=== PATIENT | female | born 1960 | race Caucasian/White ===

== ENCOUNTER 2018-05-04 13:45 | Outpatient (RCR) | payer MEDICARE, MEDICAID, SELFPAY ==
--- NOTE | 2018-04-11 12:00 | PT.OIE ---
Current Diagnoses Bilateral primary osteoarthritis of knee (04/11/18) Past Medical History (Last Updated 12/17/17 @ 20:05 by Dolly Lopez) Osteoarthritis of knees, bilateral (Chronic) Essential hypertension (Chronic 08/30/11) Depression (Chronic 08/30/11) Hyperlipidemia (Chronic 11/23/11) Hypertrophic obstructive cardiomyopathy (Chronic) Carpal tunnel syndrome of left wrist (Chronic 09/19/16) Depression (Chronic) Heart valve disease (Chronic) Hypertension (Chronic) Hypertrophic cardiomyopathy (Chronic ~2002) Obesity (Chronic) Past Surgical History (Last Updated 12/17/17 @ 20:05 by Dolly Lopez) History of aortic valve repair (Resolved ~2004) Status post hysterectomy (~2007) Provider Visit Care Team Role Provider Type Sakshi Hartman DO Attending Provider Physician Primary Care Provider Specialty: [facility] Address: [address] [place] [address], [facility] Email: [email or web address] Physical Therapy Initial Evaluation PT-OP-A Visit Information Start: 04/11/18 06:52 Freq: Status: Active Protocol: Document 04/11/18 08:15 AMB (Rec: 04/12/18 16:24 AMB [email or web address]) Out-Patient Physical Therapy Visit Information Visit Information Visit Type Initial Evaluation Visit Start Time 08:15 Visit Stop Time 09:00 Total Visit Minutes 45 Visit Number 1 Evaluation Information Evaluation Date 04/11/18 PT-OP-B Current Condition Start: 04/11/18 06:52 Freq: Status: Active Protocol: Document 04/11/18 08:15 AMB (Rec: 04/13/18 07:15 AMB [email or web address]) Current Condition History of Current Condition Onset Date chronic Current Complaints L>R knee pain History of Current Condition The patient states her knee pain has been limiting her for years but it has been worsening. BMI over 68. Lives in an apartment up stairs, and standing statically (like to cook) is very difficult. Does not remember a specific injury to her knees. Prior Functional Status Baseline Function- ADL's Independent Baseline Function- Mobility Modified Independent Current Functional Impairments (Reported) Functional Limitations- Mobility/Gait Step to gait pattern on stairs . Cannot walk down the stairs and hold her dog's leash, must use both railings. Personal Factors Other Personal Factors That May Effect Heart valve replacement Therapy/Recovery . Did cardiac rehab afterwards but knows that biking increased her knee pain at that time. Neck pain, L carpal tunnel syndrome, Allergic to adhesives and metal , hypertension, depression, shortness of breath, history of open hysterectomy. PT-OP-C Subjective Start: 04/11/18 06:52 Freq: Status: Active Protocol: Document 04/11/18 08:15 AMB (Rec: 04/13/18 07:15 AMB [email or web address]) Patient Questionnaires Lower Extremity Functional Scale LEFS Score 22 LEFS Impairment 60 to 79% Impaired (Score 17- 31) OP-PT Pain Assessment Pain Assessment Grid Paper Pain Assessment Grid Completed Yes Location Bilateral Knee Pain Location Details L>R Intensity 7 Scale Used Numeric (1 - 10) PT-OP-G Mobility & Gait Start: 04/11/18 06:52 Freq: Status: Active Protocol: Document 04/11/18 08:15 AMB (Rec: 04/13/18 08:44 AMB [email or web address]) OP Gait Assessment Comments Gait Comments Pt ambulates with bilateral hip external rotation and a WBOS. Lacks trunk rotation, increased lateral weightshift, pt becomes SOB easily. PT-OP-J Posture/Palpation/Skin Start: 04/11/18 06:52 Freq: Status: Active Protocol: Document 04/11/18 08:15 AMB (Rec: 04/13/18 08:44 AMB [email or web address]) Palpation Assessment Location One Palpation Location knees Palpation Details Pt with tenderness throughout her knees with light touch, difficult to palpate deeply PT-OP-K Range of Motion Start: 04/11/18 06:52 Freq: Status: Active Protocol: Document 04/11/18 08:15 AMB (Rec: 04/13/18 08:44 AMB [email or web address]) Knee Goniometric Range of Motion Knee Measured in Degrees Right Flexion Passive (degrees) 105 Extension Passive (degrees) 0 Left Flexion Passive (degrees) 108 Extension Active (degrees) 0 PT-OP-M Strength Start: 04/11/18 06:52 Freq: Status: Active Protocol: Document 04/11/18 08:15 AMB (Rec: 04/13/18 08:44 AMB [email or web address]) Hip Strength Hip Manual Muscle Testing Right Flexion (L2) 4 Good Extension (S1) 4- Good- Abduction 4- Good- Left Flexion (L2) 4 Good Extension (S1) 4- Good- Abduction 4- Good- Knee Strength Knee Manual Muscle Testing Right Flexion (S2) 4 Good Extension (L3) 4 Good Left Flexion (S2) 4 Good Extension (L3) 4 Good Ankle/Foot Strength Ankle and Foot Manual Muscle Testing Right Dorsiflexion (L4) 4+ Good+ Plantarflexion (S1) 4 Good Left Dorsiflexion (L4) 4+ Good+ Plantarflexion (S1) 4 Good PT-OP-R Modalities Start: 04/13/18 08:31 Freq: Status: Active Protocol: Document 04/11/18 08:15 AMB (Rec: 04/13/18 08:44 AMB [email or web address]) Electric Stimulation Electric Stimulation Pre-Modulated Body Location bilateral knees Duration (Minutes) 10 PT-OP-T Assessment and Plan Start: 04/11/18 06:52 Freq: Status: Active Protocol: Document 04/11/18 08:15 AMB (Rec: 04/13/18 07:28 AMB [email or web address]) Physical Therapy Assessment Rehab Potential Rehabilitation Potential Good Evaluation Complexity Number of Personal Factors/Comorbidities 3 or More Number of Body Systems Impaired 4 or More Clinical Presentation at Evaluation Evolving Impairments Impairments Balance Functional Activities Functional Mobility Gait Pain ROM Strength Goals Three Impairment Gait Short Term Goal (STG) The patient will ascend and descend 1 flight of stairs with 1 railing with 4/10 knee pain or less. STG Duration 4 weeks Snf Goal (LTG) The patient will begin a walking program for exercise, increasing her walking to 20 minutes per day. LTG Duration 8 weeks Two Impairment Range of motion Short Term Goal (STG) The patient will improve her knee flexion to 110 degrees of passive range of motion bilaterally. STG Duration 4 weeks One Impairment Strength Short Term Goal (STG) The patient will be independent with a LE and core strengthening HEP. STG Duration 4 weeks Snf Goal (LTG) The patient will show improved LE strength so that she can perform a partial squat with good body mechanics and with 4 /10 knee pain or less. LTG Duration 8 weeks Assessment Summary Assessment The patient attends physical therapy with worsening L>R knee pain. Standing and walking are both limited by her knee pain. Her weight makes weightbearing activities difficult, but she finds biking painful and has a difficult time tolerating the chlorine in a swimming pool. She will benefit from physical therapy to improve her ROM, strength, gait mechanics, and decrease her pain, although her medical comorbidities may make progress slow. Physical Therapy Plan Frequency and Duration Frequency of Treatment 2x/Week Duration of Treatment 8 weeks Plan of Care Start Date 04/11/18 Plan of Care End Date 06/06/17 Therapeutic Interventions Therapeutic Interventions Balance Training Gait Training Home Exercise Program Manual Therapy Neuromuscular Re-education Self-Care/Home Management Therapeutic Activities Therapeutic Exercises Modalities Cold Pack/Ice Massage Electric Stimulation Hot Packs Ultrasound Next Visit Focus/Plan Next Note Type Treatment Note Next Visit Plan Progress knee/hip/core stabilization within patient tolerance which is low.
--- NOTE | 2018-04-13 08:46 | PT.OPPOC ---
Current Diagnoses Bilateral primary osteoarthritis of knee (04/11/18) Provider Visit Care Team Role Provider Type Sakshi Hartman DO Attending Provider Physician Primary Care Provider Specialty: [facility] Address: [address] [place] [address], [id number] Email: [email or web address] Plan Of Care PT-OP-T Assessment and Plan Start: 04/11/18 06:52 Freq: Status: Active Protocol: Document 04/11/18 08:15 AMB (Rec: 04/13/18 07:28 AMB [email or web address]) Physical Therapy Assessment Rehab Potential Rehabilitation Potential Good Evaluation Complexity Number of Personal Factors/Comorbidities 3 or More Number of Body Systems Impaired 4 or More Clinical Presentation at Evaluation Evolving Impairments Impairments Balance Functional Activities Functional Mobility Gait Pain ROM Strength Goals Three Impairment Gait Short Term Goal (STG) The patient will ascend and descend 1 flight of stairs with 1 railing with 4/10 knee pain or less. STG Duration 4 weeks Passenger Barge Master Goal (LTG) The patient will begin a walking program for exercise, increasing her walking to 20 minutes per day. LTG Duration 8 weeks Two Impairment Range of motion Short Term Goal (STG) The patient will improve her knee flexion to 110 degrees of passive range of motion bilaterally. STG Duration 4 weeks One Impairment Strength Short Term Goal (STG) The patient will be independent with a LE and core strengthening HEP. STG Duration 4 weeks Longterm Goal (LTG) The patient will show improved LE strength so that she can perform a partial squat with good body mechanics and with 4 /10 knee pain or less. LTG Duration 8 weeks Assessment Summary Assessment The patient attends physical therapy with worsening L>R knee pain. Standing and walking are both limited by her knee pain. Her weight makes weightbearing activities difficult, but she finds biking painful and has a difficult time tolerating the chlorine in a swimming pool. She will benefit from physical therapy to improve her ROM, strength, gait mechanics, and decrease her pain, although her medical comorbidities may make progress slow. Physical Therapy Plan Frequency and Duration Frequency of Treatment 2x/Week Duration of Treatment 8 weeks Plan of Care Start Date 04/11/18 Plan of Care End Date 06/06/17 Therapeutic Interventions Therapeutic Interventions Balance Training Gait Training Home Exercise Program Manual Therapy Neuromuscular Re-education Self-Care/Home Management Therapeutic Activities Therapeutic Exercises Modalities Cold Pack/Ice Massage Electric Stimulation Hot Packs Ultrasound Next Visit Focus/Plan Next Note Type Treatment Note Next Visit Plan Progress knee/hip/core stabilization within patient tolerance which is low. Plan of Care Dates Plan of Care Start Date 04/11/18 Plan of Care End Date 06/06/17 Please Sign and Return: I have reviewed this Plan of Care and certify that the skilled therapy services above are required to meet the patient?s needs. Physician Signature Date Printed Name and Credentials Clinical Instructor Signature Printed Name and Credentials
--- NOTE | 2018-04-26 11:03 | PT.OTN ---
Current Diagnoses Bilateral primary osteoarthritis of knee (04/26/18) Physical Therapy Treatment Note PT-OP-A Visit Information Start: 04/11/18 06:52 Freq: Status: Active Protocol: Document 04/26/18 08:15 AMB (Rec: 04/26/18 08:23 AMB [id number]) Out-Patient Physical Therapy Visit Information Visit Information Visit Type Treatment Note Visit Start Time 08:15 Visit Stop Time 09:00 Total Visit Minutes 45 Visit Number 2 Evaluation Information Evaluation Date 04/11/18 PT-OP-B Current Condition Start: 04/11/18 06:52 Freq: Status: Active Protocol: Document 04/11/18 08:15 AMB (Rec: 04/13/18 07:15 AMB [email or web address]) Current Condition History of Current Condition Onset Date chronic Current Complaints L>R knee pain History of Current Condition The patient states her knee pain has been limiting her for years but it has been worsening. BMI over 68. Lives in an apartment up stairs, and standing statically (like to cook) is very difficult. Does not remember a specific injury to her knees. Prior Functional Status Baseline Function- ADL's Independent Baseline Function- Mobility Modified Independent Current Functional Impairments (Reported) Functional Limitations- Mobility/Gait Step to gait pattern on stairs . Cannot walk down the stairs and hold her dog's leash, must use both railings. Personal Factors Other Personal Factors That May Effect Heart valve replacement 3 Therapy/Recovery years ago. Did cardiac rehab afterwards but knows that biking increased her knee pain at that time. Neck pain, L carpal tunnel syndrome, Alergic to adhesives and metal , hypertension, depression, shortness of breath, history of open hysterectomy. PT-OP-C Subjective Start: 04/11/18 06:52 Freq: Status: Active Protocol: Document 04/26/18 08:15 AMB (Rec: 04/26/18 08:23 AMB [id number]) OP-PT Subjective Patient Comments Patient Comments Pt reports she had pneumonia and took some antibiotics, she still has a productive cough but no more fever. PT-OP-G Mobility & Gait Start: 04/11/18 06:52 Freq: Status: Active Protocol: Document 04/11/18 08:15 AMB (Rec: 04/13/18 08:44 AMB [email or web address]) OP Gait Assessment Comments Gait Comments Pt ambulates with bilateral hip external rotation and a WBOS. Lacks trunk rotation, increased lateral weightshift, pt becomes SOB easily. PT-OP-J Posture/Palpation/Skin Start: 04/11/18 06:52 Freq: Status: Active Protocol: Document 04/11/18 08:15 AMB (Rec: 04/13/18 08:44 AMB [email or web address]) Palpation Assessment Location One Palpation Location knees Palpation Details Pt with tenderness throughout her knees with light touch, difficult to palpate deeply PT-OP-K Range of Motion Start: 04/11/18 06:52 Freq: Status: Active Protocol: Document 04/11/18 08:15 AMB (Rec: 04/13/18 08:44 AMB [email or web address]) Knee Goniometric Range of Motion Knee Measured in Degrees Right Flexion Passive (degrees) 105 Extension Passive (degrees) 0 Left Flexion Passive (degrees) 108 Extension Active (degrees) 0 PT-OP-M Strength Start: 04/11/18 06:52 Freq: Status: Active Protocol: Document 04/11/18 08:15 AMB (Rec: 04/13/18 08:44 AMB [email or web address]) Hip Strength Hip Manual Muscle Testing Right Flexion (L2) 4 Good Extension (S1) 4- Good- Abduction 4- Good- Left Flexion (L2) 4 Good Extension (S1) 4- Good- Abduction 4- Good- Knee Strength Knee Manual Muscle Testing Right Flexion (S2) 4 Good Extension (L3) 4 Good Left Flexion (S2) 4 Good Extension (L3) 4 Good Ankle/Foot Strength Ankle and Foot Manual Muscle Testing Right Dorsiflexion (L4) 4+ Good+ Plantarflexion (S1) 4 Good Left Dorsiflexion (L4) 4+ Good+ Plantarflexion (S1) 4 Good PT-OP-Q Treatments Start: 04/11/18 06:52 Freq: Status: Active Protocol: Document 04/26/18 08:15 AMB (Rec: 04/26/18 11:03 AMB [email or web address]) Cardio Equipment Recumbent Stepper (Sci-Fit) Duration (Minutes) 5 Resistance 1 Therapeutic Exercises Sitting Exercises 3 Sitting Exercise Name hip add isometric Reps/Minutes 2x10 2 Sitting Exercise Name hip ER Side bilateral Resistance #3 band Reps/Minutes 2x10 1 Sitting Exercise Name LAQ Side bilateral Resistance 4# Reps/Minutes 2x10 Standing Exercises 2 Standing Exercise Name sidestepping Resistance #3 band Reps/Minutes 2x10' 1 Standing Exercise Name mini squats Reps/Minutes 2x5 Comments vc for hips back posture PT-OP-R Modalities Start: 04/13/18 08:31 Freq: Status: Active Protocol: Document 04/26/18 08:15 AMB (Rec: 04/26/18 11:03 AMB [email or web address]) Electric Stimulation Electric Stimulation Pre-Modulated Body Location bilateral knees Duration (Minutes) 10 Comments seated PT-OP-T Assessment and Plan Start: 04/11/18 06:52 Freq: Status: Active Protocol: Document 04/26/18 08:15 AMB (Rec: 04/26/18 11:03 AMB [email or web address]) Physical Therapy Assessment Assessment Summary Assessment Pt with poor tolerance of even gentle exercises. Given HEP for hip strengthening (hip abd /add in seated) Physical Therapy Plan Next Visit Focus/Plan Next Note Type Treatment Note Next Visit Plan Progress knee/hip/core stabilization within patient tolerance which is low.
--- NOTE | 2018-05-04 14:37 | PT.OTN ---
Current Diagnoses Bilateral primary osteoarthritis of knee (05/04/18) Physical Therapy Treatment Note PT-OP-A Visit Information Start: 04/11/18 06:52 Freq: Status: Active Protocol: Document 05/04/18 13:45 AMB (Rec: 05/04/18 13:58 AMB [id number]) Out-Patient Physical Therapy Visit Information Visit Information Visit Type Treatment Note Visit Start Time 13:45 Visit Stop Time 14:30 Total Visit Minutes 45 Visit Number 3 Evaluation Information Evaluation Date 04/11/18 PT-OP-B Current Condition Start: 04/11/18 06:52 Freq: Status: Active Protocol: Document 04/11/18 08:15 AMB (Rec: 04/13/18 07:15 AMB [email or web address]) Current Condition History of Current Condition Onset Date chronic Current Complaints L>R knee pain History of Current Condition The patient states her knee pain has been limiting her for years but it has been worsening. BMI over 68. Lives in an apartment up stairs, and standing statically (like to cook) is very difficult. Does not remember a specific injury to her knees. Prior Functional Status Baseline Function- ADL's Independent Baseline Function- Mobility Modified Independent Current Functional Impairments (Reported) Functional Limitations- Mobility/Gait Step to gait pattern on stairs . Cannot walk down the stairs and hold her dog's leash, must use both railings. Personal Factors Other Personal Factors That May Effect Heart valve replacement 3 Therapy/Recovery years ago. Did cardiac rehab afterwards but knows that biking increased her knee pain at that time. Neck pain, L carpal tunnel syndrome, Alergic to adhesives and metal , hypertension, depression, shortness of breath, history of open hysterectomy. PT-OP-C Subjective Start: 04/11/18 06:52 Freq: Status: Active Protocol: Document 05/04/18 13:45 AMB (Rec: 05/04/18 13:58 AMB [id number]) OP-PT Subjective Patient Comments Patient Comments Pt with 8/10 knee pain today PT-OP-G Mobility & Gait Start: 04/11/18 06:52 Freq: Status: Active Protocol: Document 04/11/18 08:15 AMB (Rec: 04/13/18 08:44 AMB [email or web address]) OP Gait Assessment Comments Gait Comments Pt ambulates with bilateral hip external rotation and a WBOS. Lacks trunk rotation, increased lateral weightshift, pt becomes SOB easily. PT-OP-J Posture/Palpation/Skin Start: 04/11/18 06:52 Freq: Status: Active Protocol: Document 04/11/18 08:15 AMB (Rec: 04/13/18 08:44 AMB [email or web address]) Palpation Assessment Location One Palpation Location knees Palpation Details Pt with tenderness throughout her knees with light touch, difficult to palpate deeply PT-OP-K Range of Motion Start: 04/11/18 06:52 Freq: Status: Active Protocol: Document 04/11/18 08:15 AMB (Rec: 04/13/18 08:44 AMB [email or web address]) Knee Goniometric Range of Motion Knee Measured in Degrees Right Flexion Passive (degrees) 105 Extension Passive (degrees) 0 Left Flexion Passive (degrees) 108 Extension Active (degrees) 0 PT-OP-M Strength Start: 04/11/18 06:52 Freq: Status: Active Protocol: Document 04/11/18 08:15 AMB (Rec: 04/13/18 08:44 AMB [email or web address]) Hip Strength Hip Manual Muscle Testing Right Flexion (L2) 4 Good Extension (S1) 4- Good- Abduction 4- Good- Left Flexion (L2) 4 Good Extension (S1) 4- Good- Abduction 4- Good- Knee Strength Knee Manual Muscle Testing Right Flexion (S2) 4 Good Extension (L3) 4 Good Left Flexion (S2) 4 Good Extension (L3) 4 Good Ankle/Foot Strength Ankle and Foot Manual Muscle Testing Right Dorsiflexion (L4) 4+ Good+ Plantarflexion (S1) 4 Good Left Dorsiflexion (L4) 4+ Good+ Plantarflexion (S1) 4 Good PT-OP-Q Treatments Start: 04/11/18 06:52 Freq: Status: Active Protocol: Document 05/04/18 13:45 AMB (Rec: 05/05/18 14:36 AMB [email or web address]) Therapeutic Exercises Sitting Exercises 4 Sitting Exercise Name march Reps/Minutes 2x10 1 Sitting Exercise Name LAQ Side bilateral Resistance 4# Reps/Minutes 2x10 Standing Exercises 4 Standing Exercise Name standing calf stretch Reps/Minutes 30x2 Comments ARASELI 3 Standing Exercise Name standing hamstring stretch Reps/Minutes 30x2 Comments stair 1 Standing Exercise Name mini squats Reps/Minutes 2x8 Comments from liudmila blum Manual Therapy Treatment Manual Techniques 1 Type rolling pin self myofascial release Body Position Sitting PT-OP-R Modalities Start: 04/13/18 08:31 Freq: Status: Active Protocol: Document 05/04/18 13:45 AMB (Rec: 05/05/18 14:37 AMB [email or web address]) Electric Stimulation Electric Stimulation Pre-Modulated Body Location bilateral knees Duration (Minutes) 15 Comments seated PT-OP-T Assessment and Plan Start: 04/11/18 06:52 Freq: Status: Active Protocol: Document 05/04/18 13:45 AMB (Rec: 05/05/18 14:36 AMB [email or web address]) Physical Therapy Assessment Assessment Summary Assessment Pt with better tolerance of exercises today. Sitting and standing are the best positions, as lying down is difficult with breathing. Physical Therapy Plan Next Visit Focus/Plan Next Note Type Treatment Note Next Visit Plan Progress knee/hip/core stabilization within patient tolerance which is low.
--- NOTE | 2018-06-19 08:54 | PT.OPDS ---
Current Diagnoses Bilateral primary osteoarthritis of knee (05/04/18) Provider Visit Care Team Role Provider Type Sakshi Hartman DO Attending Provider Physician Primary Care Provider Specialty: [facility] Address: [address] [place] [address], [facility] Email: [email or web address] Visit Number Visit Number 3 Discharge Summary PT-OP-B Current Condition Start: 04/11/18 06:52 Freq: Status: Active Protocol: Document 04/11/18 08:15 AMB (Rec: 04/13/18 07:15 AMB [id number]) Current Condition History of Current Condition Onset Date chronic Current Complaints L>R knee pain History of Current Condition The patient states her knee pain has been limiting her for years but it has been worsening. BMI over 68. Lives in an apartment up stairs, and standing statically (like to cook) is very difficult. Does not remember a specific injury to her knees. Prior Functional Status Baseline Function- ADL's Independent Baseline Function- Mobility Modified Independent Current Functional Impairments (Reported) Functional Limitations- Mobility/Gait Step to gait pattern on stairs . Cannot walk down the stairs and hold her dog's leash, must use both railings. Personal Factors Other Personal Factors That May Effect Heart valve replacement 3 Therapy/Recovery years ago. Did cardiac rehab afterwards but knows that biking increased her knee pain at that time. Neck pain, L carpal tunnel syndrome, Alergic to adhesives and metal , hypertension, depression, shortness of breath, history of open hysterectomy. PT-OP-C Subjective Start: 04/11/18 06:52 Freq: Status: Active Protocol: Document 05/04/18 13:45 AMB (Rec: 05/04/18 13:58 AMB [id number]) OP-PT Subjective Patient Comments Patient Comments Pt with 8/10 knee pain today PT-OP-G Mobility & Gait Start: 04/11/18 06:52 Freq: Status: Active Protocol: Document 04/11/18 08:15 AMB (Rec: 04/13/18 08:44 AMB [email or web address]) OP Gait Assessment Comments Gait Comments Pt ambulates with bilateral hip external rotation and a WBOS. Lacks trunk rotation, increased lateral weightshift, pt becomes SOB easily. PT-OP-J Posture/Palpation/Skin Start: 04/11/18 06:52 Freq: Status: Active Protocol: Document 04/11/18 08:15 AMB (Rec: 04/13/18 08:44 AMB [email or web address]) Palpation Assessment Location One Palpation Location knees Palpation Details Pt with tenderness throughout her knees with light touch, difficult to palpate deeply PT-OP-K Range of Motion Start: 04/11/18 06:52 Freq: Status: Active Protocol: Document 04/11/18 08:15 AMB (Rec: 04/13/18 08:44 AMB [email or web address]) Knee Goniometric Range of Motion Knee Measured in Degrees Right Flexion Passive (degrees) 105 Extension Passive (degrees) 0 Left Flexion Passive (degrees) 108 Extension Active (degrees) 0 PT-OP-M Strength Start: 04/11/18 06:52 Freq: Status: Active Protocol: Document 04/11/18 08:15 AMB (Rec: 04/13/18 08:44 AMB [email or web address]) Hip Strength Hip Manual Muscle Testing Right Flexion (L2) 4 Good Extension (S1) 4- Good- Abduction 4- Good- Left Flexion (L2) 4 Good Extension (S1) 4- Good- Abduction 4- Good- Knee Strength Knee Manual Muscle Testing Right Flexion (S2) 4 Good Extension (L3) 4 Good Left Flexion (S2) 4 Good Extension (L3) 4 Good Ankle/Foot Strength Ankle and Foot Manual Muscle Testing Right Dorsiflexion (L4) 4+ Good+ Plantarflexion (S1) 4 Good Left Dorsiflexion (L4) 4+ Good+ Plantarflexion (S1) 4 Good PT-OP-T Assessment and Plan Start: 04/11/18 06:52 Freq: Status: Active Protocol: Document 06/19/18 08:51 AMB (Rec: 06/19/18 08:54 AMB [email or web address]) Physical Therapy Assessment Assessment Summary Assessment Cece was seen for 3 visits. In that time she did not significantly improve, but was instructed in a home exercise program that she can perform. She canceled and no showed her last few appointments over a month ago, so she is discharged at this time. Physical Therapy Plan Discharge Physical Therapy Discharge Reasons No Longer Attending PT
== END 2018-06-19 09:50 ==
LOC: PHYS 13:45
PROVIDERS: PCP Family Medicine; Visit Provider Family Medicine
DX: M17.0 Bilateral primary osteoarthritis of knee (principal)
CPT/HCPCS: 97014; 97110; 97140; 97162; G0283

== ENCOUNTER → 2018-10-11 10:46 | Outpatient (CLI) | payer MEDICARE, MEDICAID, SELFPAY ==
[2018-10-11 11:23] LABS: Hemoglobin A1C% w Est Avg Glu 5.9 % (4.0-6.0)
[2018-10-11 11:26] LABS: Alanine Aminotransferase 34 IU/L (9-52); Albumin 4.5 g/dL (3.5-5.0); Albumin Globulin Ratio 1.3 (1.0-2.8); Alkaline Phosphatase 92 U/L (38-126); Aspartate Aminotransferase 24 IU/L (14-36); BUN Creatinine Ratio 18.5 (6-22); Blood Urea Nitrogen 24 mg/dL (7-17); Calcium 9.9 mg/dL (8.4-10.2); Carbon Dioxide 27 mmol/L (22-32); Chloride 104 mmol/L (98-107); Cholesterol 161 mg/dL (140-199); Estimated Glomerular Filt Rate 42.1 mL/min (>60); Globulin 3.5 g/dL (1.7-4.1); Glucose 111 mg/dL (70-100); HDL Cholesterol 28 mg/dL (40-60); HEMOLYSIS < 15 (0-50); LDL Cholesterol Calculated 103 mg/dL (<100); Sodium 142 mmol/L (137-145); Triglycerides 151 mg/dL (35-150)
[2018-10-11 12:55] LABS: TSH w/ Reflex to FT4 2.84 uIU/mL (0.47-4.68)
== END ==
PROVIDERS: PCP Family Medicine; Visit Provider Family Medicine
DX: I10 Essential (primary) hypertension (principal); R73.03 Prediabetes; E78.5 Hyperlipidemia, unspecified
CPT/HCPCS: 36415; 80053; 80061; 83036; 84443

== ENCOUNTER → 2018-10-23 10:33 | Outpatient (CLI) | payer MEDICARE, MEDICAID, SELFPAY ==
--- NOTE | 2018-10-23 | DI.US.S_ITS ---
PROCEDURE: US PERIPH VENOUS LOW EXTREM BI INDICATIONS: GENERALIZED EDEMA TECHNIQUE: Real-time imaging, as well as color and pulse Doppler interrogation, were performed of the deep veins of both legs from the inguinal ligament to the popliteal fossa. COMPARISON: None. FINDINGS: Right: The common femoral, femoral and popliteal veins are normally compressible, and free of intraluminal thrombus. Color and pulse Doppler demonstrate normal phasic intravascular flow. There is normal augmentation response to distal compression maneuver. Left: The common femoral, femoral and popliteal veins are normally compressible, and free of intraluminal thrombus. Color and pulse Doppler demonstrate normal phasic intravascular flow. There is normal augmentation response to distal compression maneuver. IMPRESSION: No deep venous thrombosis identified within either the left or right lower extremities. Dictated by: Cresencio DE OLIVEIRA Interpreted: Maria De Jesus Shukla MD on 10/23/2018 at 12:03 Approved by: Maria De Jesus Shukla M.D. on 10/23/2018 at 13:40
== END ==
PROVIDERS: PCP Family Medicine; Visit Provider Internal Medicine
DX: R60.1 Generalized edema (principal)
CPT/HCPCS: 93970

== ENCOUNTER → 2019-05-06 12:07 | Outpatient (CLI) | payer MEDICARE, MEDICAID, SELFPAY ==
[2019-05-06 13:03] LABS: BUN Creatinine Ratio 18.5 (6-22); Blood Urea Nitrogen 24 mg/dL (7-17); Calcium 9.9 mg/dL (8.4-10.2); Carbon Dioxide 27 mmol/L (22-32); Chloride 108 mmol/L (98-107); Estimated Glomerular Filt Rate 41.9 mL/min (>60); Glucose 109 mg/dL (70-100); HEMOLYSIS < 15 (0-50); Potassium 5.1 mmol/L (3.4-5.1); Sodium 143 mmol/L (137-145)
== END ==
PROVIDERS: Family Provider Family Medicine; PCP Family Medicine; Visit Provider Internal Medicine
DX: I10 Essential (primary) hypertension (principal)
CPT/HCPCS: 36415; 80048

== ENCOUNTER → 2019-07-26 08:44 | Outpatient (CLI) | payer MEDICARE, MEDICAID, SELFPAY ==
[2019-07-26 09:49] LABS: Hemoglobin A1C% w Est Avg Glu 6.1 % (4.0-6.0)
[2019-07-26 10:19] LABS: Alanine Aminotransferase 21 IU/L (<35); Albumin 4.3 g/dL (3.5-5.0); Albumin Globulin Ratio 1.3 (1.0-2.8); Alkaline Phosphatase 100 U/L (38-126); Aspartate Aminotransferase 22 IU/L (14-36); BUN Creatinine Ratio 22.9 (6-22); Bilirubin Total 0.6 mg/dL (0.2-1.3); Blood Urea Nitrogen 39 mg/dL (7-17); Calcium 10.2 mg/dL (8.4-10.2); Carbon Dioxide 26 mmol/L (22-32); Chloride 106 mmol/L (98-107); Cholesterol 177 mg/dL (140-199); Estimated Glomerular Filt Rate 30.8 mL/min (>60); Globulin 3.3 g/dL (1.7-4.1); Glucose 107 mg/dL (70-100); HDL Cholesterol 28 mg/dL (40-60); HEMOLYSIS < 15 (0-50); LDL Cholesterol Calculated 117 mg/dL (<100); Potassium 5.2 mmol/L (3.4-5.1); Sodium 141 mmol/L (137-145); Total Protein 7.6 g/dL (6.3-8.2); Triglycerides 158 mg/dL (35-150)
== END ==
PROVIDERS: Family Provider Family Medicine; PCP Family Medicine; Referring Provider Internal Medicine; Visit Provider Internal Medicine
DX: I10 Essential (primary) hypertension (principal); N28.9 Disorder of kidney and ureter, unspecified; E66.01 Morbid (severe) obesity due to excess calories; E78.5 Hyperlipidemia, unspecified
CPT/HCPCS: 36415; 80053; 80061; 83036

== ENCOUNTER → 2019-07-30 09:44 | Outpatient (CLI) | payer MEDICARE, MEDICAID, SELFPAY ==
[2019-07-30 11:58] LABS: Magnesium 2.5 mg/dL (1.6-2.3)
[2019-07-31 10:17] LABS: BUN Creatinine Ratio 19.4 (6-22); Blood Urea Nitrogen 33 mg/dL (7-17); Calcium 10.1 mg/dL (8.4-10.2); Carbon Dioxide 24 mmol/L (22-32); Chloride 106 mmol/L (98-107); Estimated Glomerular Filt Rate 30.8 mL/min (>60); Glucose 106 mg/dL (70-100); HEMOLYSIS < 15 (0-50); Sodium 140 mmol/L (137-145)
[2019-07-31 10:20] LABS: Potassium 5.4 mmol/L (3.4-5.1)
== END ==
PROVIDERS: Family Provider Family Medicine; PCP Family Medicine; Referring Provider Family Medicine; Visit Provider Family Medicine
DX: E66.01 Morbid (severe) obesity due to excess calories (principal); I10 Essential (primary) hypertension
CPT/HCPCS: 36415; 80048; 83735

== ENCOUNTER → 2019-08-06 10:17 | Outpatient (CLI) | payer MEDICARE, MEDICAID, SELFPAY ==
[2019-08-06 12:00] LABS: BUN Creatinine Ratio 20.8 (6-22); Blood Urea Nitrogen 30 mg/dL (7-17); Calcium 10.1 mg/dL (8.4-10.2); Carbon Dioxide 24 mmol/L (22-32); Chloride 107 mmol/L (98-107); Estimated Glomerular Filt Rate 37.3 mL/min (>60); Glucose 101 mg/dL (70-100); HEMOLYSIS < 15 (0-50); Potassium 4.6 mmol/L (3.4-5.1); Sodium 142 mmol/L (137-145)
== END ==
PROVIDERS: Family Provider Family Medicine; PCP Family Medicine; Referring Provider Family Medicine; Visit Provider Family Medicine
DX: I10 Essential (primary) hypertension (principal)
CPT/HCPCS: 36415; 80048

== ENCOUNTER → 2019-08-12 07:42 | Outpatient (CLI) | payer MEDICARE, MEDICAID, SELFPAY ==
--- NOTE | 2019-08-12 | DI.ECHO.S_ITS ---
[place] [facility]---------+ [facility] +---------+ : : [address] : : : : [id number] : : : : Phone: [phone]+ Echocardiogram Report + + :Name: MATTY AL Study Date: 08/12/2019 Height: 65 in : :[facility] Weight: 394 lb : : Gender: Female BSA: 2.6 m2 : :: 1960 Age: 59 yrs BP: 142/88 mmHg: :Reason For Study: Aortic insufficiency : :Ordering Physician: Chandu : :Aylin Stuart Performed By: Ya Reardon : :Referring: CHANDU CARNES : + + Interpretation Summary Normal sinus rhythm. Normal LV size; moderate-severe concentric LVH; normal wall motion and LV systolic function. EF is 60-65%. Moderate LA enlargement; otherwise normal chamber sizes. Moderate MAC. Aortic valve is replaced by historty with TAVR with moderate associated AI. Pressure half time is 322 msec Compared to prior study 04/27/2017, no significant changes have occurred. Procedure: A two-dimensional transthoracic echocardiogram with color flow and Doppler was performed. The study quality was technically adequate. Comparison is made with the echocardiogram of 04/27/2017. The patient was in sinus bradycardia with heart rates between 57-62 bpm during the exam. Left Ventricle: The left ventricle is normal in size. There is moderate- severe concentric left ventricular hypertrophy. The ejection fraction is estimated to be 60-65%. Right Ventricle: The right ventricle is normal in size and function. Atria: The left atrium is moderately dilated. Right atrial size is normal. There is no Doppler evidence for an interatrial shunt. Mitral Valve: There is moderate mitral annular calcification. The mitral valve is normal. There is mild to moderate mitral regurgitation. Aortic Valve: There is a bioprosthetic aortic valve. There is moderate perivalvular regurgitation around the prosthetic aortic valve. The prosthetic aortic valve is well-seated. Tricuspid Valve: The tricuspid valve is normal in structure and function. There is mild tricuspid regurgitation. The right ventricular systolic pressure is estimated to be at least 29 mmHg based on an estimated right atrial pressure of 3 mm Hg. Pulmonic Valve: The pulmonic valve is not well seen, but is grossly normal. There is trace pulmonic regurgitation. Great Vessels: The aortic root is normal size. The dimensions of the ascending aorta are normal. The IVC is of normal diameter and collapses greater than 50% with a sniff. This suggests a low right atrial pressure of 3 mm Hg. Pericardium/ Pleura There is no pericardial effusion. There is no pleural effusion. MMode/2D Measurements & Calculations LVIDd: 5.4 cm LVOT diam: 2.1 cm LVIDs: 2.9 cm asc Aorta Diam: 3.7 cm FS: 45.3 % Ao Arch Diam (Prox Trans): 2.9 cm EPSS: 0.98 cm IVSd: 1.9 cm LVPWd: 1.5 cm LV bhagat. diameter/BSA (cm/m^2): 2.0 LV sys. diameter/BSA (cm/m^2): 1.1 LA A2 area: 24.8 cm2 RA long axis: 5.6 cm LA A4 area: 29.9 cm2 RA area: 19.6 cm2 LA length (vol): 6.3 cm RA vol: 58.8 ml LA vol: 100.5 ml RA : 22.3 ml/m2 LA vol index: 38.1 ml/m2 IVC diam: 1.6 cm RVD1 (basal): 3.8 cm TAPSE: 2.7 cm Doppler Measurements & Calculations Ao V2 max: 199.7 cm/sec LVOT Max Panchito: 128.6 cm/sec Ao V2 mean: 134.1 cm/sec LV V1 max P.6 mmHg Ao max P.0 mmHg LV V1 VTI: 34.3 cm Ao mean P.3 mmHg KIMMY(I,D): 2.4 cm2 Ao V2 VTI: 47.6 cm KIMMY(V,D): 2.1 cm2 sev ratio: 0.72 KIMMY indexed to BSA (cm^2/m^2): 0.91 MV E max panchito: 104.7 cm/sec TR max panchito: 252.8 cm/sec MV A max panchito: 99.8 cm/sec TR max P.6 mmHg MV E/A: 1.0 PA V2 max: 106.7 cm/sec Med Peak E' Panchito: 5.5 cm/sec PA V2 mean: 79.9 cm/sec E/E' med: 19.1 PA mean P.8 mmHg Lat Peak E' Panchito: 5.1 cm/sec PA pr(Accel): 8.9 mmHg E/E' lat: 20.7 E/e' average: 19.9 MV dec time: 0.27 sec MV P1/2t: 77.9 msec MV P1/2t max panchito: 104.3 cm/sec SV(LVOT): 113.7 ml MVA(P1/2t): 2.8 cm2 Electronically signed by: Chandu Carnes M.D. on Reading Physician:08/13/2019 01:35 PM
== END ==
PROVIDERS: Family Provider Family Medicine; PCP Family Medicine; Referring Provider Family Medicine; Visit Provider Internal Medicine
DX: I08.3 Combined rheumatic disorders of mitral, aortic and tricuspid valves (principal); Z95.2 Presence of prosthetic heart valve
CPT/HCPCS: 93306

== ENCOUNTER → 2019-08-30 10:55 | Outpatient (CLI) | payer MEDICARE, MEDICAID, SELFPAY ==
[2019-08-30 13:04] LABS: BUN Creatinine Ratio 20.9 (6-22); Blood Urea Nitrogen 34 mg/dL (7-17); Calcium 10.1 mg/dL (8.4-10.2); Carbon Dioxide 25 mmol/L (22-32); Chloride 108 mmol/L (98-107); Estimated Glomerular Filt Rate 32.3 mL/min (>60); Glucose 104 mg/dL (70-100); HEMOLYSIS < 15 (0-50); Sodium 141 mmol/L (137-145)
== END ==
PROVIDERS: Family Provider Family Medicine; PCP Family Medicine; Referring Provider Internal Medicine; Visit Provider Internal Medicine
DX: I10 Essential (primary) hypertension (principal)
CPT/HCPCS: 36415; 80048

== ENCOUNTER → 2019-10-03 10:46 | Outpatient (CLI) | payer MEDICARE, MEDICAID, SELFPAY ==
[2019-10-03 12:15] LABS: Alanine Aminotransferase 22 IU/L (<35); Albumin 4.1 g/dL (3.5-5.0); Albumin Globulin Ratio 1.1 (1.0-2.8); Alkaline Phosphatase 83 U/L (38-126); Aspartate Aminotransferase 26 IU/L (14-36); BUN Creatinine Ratio 17.6 (6-22); Bilirubin Total 0.6 mg/dL (0.2-1.3); Blood Urea Nitrogen 26 mg/dL (7-17); Calcium 9.6 mg/dL (8.4-10.2); Carbon Dioxide 27 mmol/L (22-32); Chloride 107 mmol/L (98-107); Estimated Glomerular Filt Rate 36.1 mL/min (>60); Globulin 3.6 g/dL (1.7-4.1); Glucose 102 mg/dL (70-100); HEMOLYSIS 35 (0-50); Potassium 4.7 mmol/L (3.4-5.1); Sodium 143 mmol/L (137-145); Total Protein 7.7 g/dL (6.3-8.2)
== END ==
PROVIDERS: Family Provider Family Medicine; PCP Family Medicine; Referring Provider Internal Medicine; Visit Provider Internal Medicine
DX: R11.2 Nausea with vomiting, unspecified (principal)
CPT/HCPCS: 36415; 80053

== ENCOUNTER → 2020-03-05 09:28 | Outpatient (CLI) | payer MEDICARE, MEDICAID, SELFPAY ==
[2020-03-06 07:48] LABS: COVID19 Sendout Not Detected (Not Detect)
== END ==
PROVIDERS: Family Provider Family Medicine; PCP Family Medicine; Visit Provider Physician Assistant
DX: Z11.59 Encounter for screening for other viral diseases (principal)
CPT/HCPCS: 87635

== ENCOUNTER 2020-12-14 16:28 | Emergency (ER) | payer MEDICARE, MEDICAID, SELFPAY ==
[2020-12-14 16:41] VITALS: BP 144/63; PULSE 69; RESP 20; TEMP 36.5; O2SAT 97; BMI 58.3
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
[2020-12-14] MEDS: PENICILLIN VK 250 MG TABLET 500 MG PO (20:45)
[2020-12-14] MEDS: KETOROLAC 30 MG/ML VIAL IM (20:45)
[2020-12-14 20:57] VITALS: PULSE 61; RESP 20; TEMP 36.3; O2SAT 96
== END 2020-12-14 20:57 | disposition home or self-care (01) ==
PROVIDERS: Emergency Provider Emergency Medicine; Family Provider Family Medicine; PCP Family Medicine
DX: K04.7 Periapical abscess without sinus (principal)
CPT/HCPCS: 96372; 99283; J1885

== ENCOUNTER → 2021-01-04 12:32 | Outpatient (CLI) | payer MEDICARE, MEDICAID, SELFPAY ==
[2021-01-04 14:21] LABS: BUN Creatinine Ratio 15.6 (6-22); Blood Urea Nitrogen 25 mg/dL (7-17); Carbon Dioxide 25 mmol/L (22-32); Chloride 108 mmol/L (98-107); Estimated Glomerular Filt Rate 32.9 mL/min (>60); Glucose 104 mg/dL (80-110); HEMOLYSIS < 15 (0-50); Potassium 4.5 mmol/L (3.4-5.1); Sodium 141 mmol/L (137-145)
== END ==
PROVIDERS: Family Provider Family Medicine; PCP Family Medicine; Referring Provider Internal Medicine; Visit Provider Internal Medicine
DX: I10 Essential (primary) hypertension (principal)
CPT/HCPCS: 36415; 80048

== ENCOUNTER → 2021-04-10 09:22 | Outpatient (CLI) | payer MEDICARE, MEDICAID, SELFPAY ==
[2021-04-10 10:20] LABS: Alanine Aminotransferase 18 IU/L (<35); Albumin 4.3 g/dL (3.5-5.0); Albumin Globulin Ratio 1.3 (1.0-2.8); Alkaline Phosphatase 90 U/L (38-126); Aspartate Aminotransferase 28 IU/L (14-36); Bilirubin Total 0.9 mg/dL (0.2-1.3); Blood Urea Nitrogen 25 mg/dL (7-17); Calcium 9.7 mg/dL (8.4-10.2); Carbon Dioxide 31 mmol/L (22-32); Chloride 103 mmol/L (98-107); Estimated Glomerular Filt Rate 29.1 mL/min (>60); Globulin 3.4 g/dL (1.7-4.1); Glucose 107 mg/dL (80-110); HEMOLYSIS < 15 (0-50); Lipase 110 U/L (23-300); Potassium 4.4 mmol/L (3.4-5.1); Sodium 141 mmol/L (137-145); Total Protein 7.7 g/dL (6.3-8.2)
[2021-04-10 12:04] LABS: Hemoglobin A1C% w Est Avg Glu 5.7 % (4.0-6.0)
== END ==
PROVIDERS: Family Provider Family Medicine; PCP Family Medicine; Referring Provider Family Medicine; Visit Provider Family Medicine
DX: N18.31 Chronic kidney disease, stage 3a (principal); E66.01 Morbid (severe) obesity due to excess calories
CPT/HCPCS: 36415; 80053; 83036; 83690

== ENCOUNTER → 2021-07-13 13:03 | Outpatient (CLI) | payer MEDICARE, MEDICAID, SELFPAY ==
[2021-07-13 14:16] LABS: Appearance Urine UA CLEAR; Bilirubin Urine UA NEGATIVE (NEGATIVE); Color Urine UA YELLOW; Glucose Urine UA NEGATIVE (Negative); Ketones Urine UA NEGATIVE (NEGATIVE); Leukocyte Esterase Urine UA NEGATIVE (NEGATIVE); Nitrite Urine UA NEGATIVE (Negative); Occult Blood Urine UA NEGATIVE (Negative); Protein Urine UA NEGATIVE (Negative); Urobilinogen Urine UA 0.2 E.U./dL (0.2)
[2021-07-13 14:22] LABS: Add Manual Diff / Slide Review NO; Basophils Absolute Auto 0 /uL (0-100); Basophils Percent Auto 0.3 % (0-2); Eosinophils Absolute Auto 300 /uL (0-450); Eosinophils Percent Auto 4.4 % (2-4); Hematocrit 34.6 % (36-46); Hemoglobin 11.6 g/dL (12.0-16.0); Lymphocytes Absolute Auto 1300 /uL (1100-4500); Mean Corpuscular HGB Conc 33.5 % (30-36); Mean Corpuscular Hemoglobin 27.7 PG (26-34); Mean Corpuscular Volume 82.8 fL (80-100); Monocytes Absolute Auto 500 /uL (0-900); Monocytes Percent Auto 7.2 % (3-14); Neutrophils Absolute Auto 4300 /uL (1500-7000); Neutrophils Percent Auto 68.1 % (50-75); Platelet Count 209 X10^3/uL (150-400); Red Blood Cell Count 4.18 X10^6/uL (4.0-5.2); Red Cell Distribution Width 14.2 % (11.6-14.8); White Blood Cell Count 6.3 X10^3/uL (4.5-11.0)
[2021-07-13 14:26] LABS: Bacteria Urine None Seen; Culture Indicated Urine Cult Not Indicated; RBC Urine None Seen (0-5/HPF); Urine Comments Microscopic Normal; WBC Urine None Seen (0-5/HPF)
[2021-07-13 14:30] LABS: Albumin 4.2 g/dL (3.5-5.0); BUN Creatinine Ratio 12.7 (6-22); Blood Urea Nitrogen 20 mg/dL (7-17); Calcium 9.6 mg/dL (8.4-10.2); Carbon Dioxide 30 mmol/L (22-32); Chloride 106 mmol/L (98-107); Estimated Glomerular Filt Rate 33.2 mL/min (>60); Glucose 93 mg/dL (80-110); HEMOLYSIS < 15 (0-50); Phosphorous 3.2 mg/dL (2.8-4.1); Potassium 4.6 mmol/L (3.4-5.1); Sodium 141 mmol/L (137-145)
[2021-07-13 16:23] LABS: Microalbumin Urine Random 1.1 mg/dL (0-1.6)
[2021-07-13 16:28] LABS: Creatinine Urine Random 182.2 mg/dL
[2021-07-13 16:35] LABS: Vitamin D 25 Hydroxy (D3) < 12.8 ng/mL (30.0-100.0)
[2021-07-14 07:10] LABS: Parathyroid Hormone Int 144 pg/mL (15-65)
== END ==
PROVIDERS: Family Provider Family Medicine; PCP Family Medicine; Referring Provider Internal Medicine Nephrology; Visit Provider Internal Medicine Nephrology
DX: N18.30 Chronic kidney disease, stage 3 unspecified (principal)
CPT/HCPCS: 36415; 80069; 81001; 82043; 82306; 82570; 83970; 85025

== ENCOUNTER → 2021-08-26 13:31 | Outpatient (CLI) | payer MEDICARE, MEDICAID, SELFPAY ==
--- NOTE | 2021-08-26 | DI.ECHO.S_ITS ---
[place] +---------+ [facility] +---------+ : : [address] : : [address] : [address] : : : : [id number] : : : : Phone: [phone]+ Echocardiogram Report + + :Name: MTATY AL Study Date: 08/26/2021 Height: 64 in : :[facility] ReadingLocation: Weight: 368 lb: : Gender: Female BSA: 2.5 m2 : :: 1960 Age: 61 yrs : :Reason For Study: AORTIC INSUFFICIENCY : :Ordering Physician: TRICE, : :CHANDU Performed By: Ya Reardon : :Referring: CHANDU CARNES : + + Interpretation Summary Normal sinus rhythm. MIldly dilated LV with mild concentric LVH; normal wall motion and LV systolic function. EF is 65-70%. Moderate LA enlargement; otherwise normal chamber sizes. Moderate MAC Aortic valve is replaced by historty with TAVR with moderate associated AI. Pressure half time is 271 msec Compared to prior study dated 08/12/2019, LV is slightly more dilated. AI is worse. Pressure half time is down from 322 msec to 271 msec. Procedure: A two-dimensional transthoracic echocardiogram with color flow and Doppler was performed. The study quality was technically adequate. Comparison is made with the echocardiogram of 08/12/2019. The patient was in sinus rhythm with heart rates between 60-75 bpm during the exam. Left Ventricle: The left ventricle is mildly dilated. The estimated left ventricular end diastolic volume is 146 ml. Left ventricular wall thickness is mildly increased. The ejection fraction is estimated to be 65-70%. Right Ventricle: The right ventricle is normal in size and function. Atria: The left atrium is moderately dilated. Right atrial size is normal. Mitral Valve: The mitral valve leaflets appear mildly thickened, but open well. There is moderate mitral annular calcification. There is mild to moderate mitral regurgitation. Aortic Valve: There is a prosthetic aortic valve. There is moderate perivalvular regurgitation around the prosthetic aortic valve. The peak aortic velocity is 2.8 m/sec. The aortic valve mean gradient is 18 mmHg. Tricuspid Valve: The tricuspid valve is normal in structure and function. There is mild tricuspid regurgitation. The right ventricular systolic pressure is estimated to be at least 29 mmHg based on an estimated right atrial pressure of 3 mm Hg. Pulmonic Valve: The pulmonic valve leaflets are thin and pliable; valve motion is normal. There is no pulmonic valvular regurgitation. Great Vessels: The ascending aorta is normal in size. The IVC is of normal diameter and collapses greater than 50% with a sniff. This suggests a low right atrial pressure of 3 mm Hg. Pericardium/ Pleura There is no pericardial effusion. There is no pleural effusion. MMode/2D Measurements & Calculations LVIDd: 6.1 cm LVOT diam: 2.2 cm LVIDs: 3.8 cm asc Aorta Diam: 3.5 cm FS: 38.0 % Ao Arch Diam (Prox Trans): 2.5 cm IVSd: 1.00 cm LVPWd: 1.4 cm LV bhagat. diameter/BSA (cm/m^2): 2.4 LV sys. diameter/BSA (cm/m^2): 1.5 LA A2 area: 28.7 cm2 RA long axis: 4.8 cm LA A4 area: 27.5 cm2 RA area: 12.6 cm2 LA length (vol): 6.4 cm RA vol: 27.9 ml LA vol: 104.6 ml RA : 11.0 ml/m2 LA vol index: 41.3 ml/m2 IVC diam: 1.3 cm RVD1 (basal): 3.6 cm TAPSE: 2.6 cm Doppler Measurements & Calculations Ao V2 max: 281.6 cm/sec LVOT Max Panchito: 134.0 cm/sec Ao V2 mean: 203.7 cm/sec LV V1 max P.2 mmHg Ao max P.7 mmHg LV V1 VTI: 37.7 cm Ao mean P.3 mmHg KIMMY(I,D): 2.0 cm2 Ao V2 VTI: 70.5 cm KIMMY(V,D): 1.8 cm2 sev ratio: 0.53 KIMMY indexed to BSA (cm^2/m^2): 0.79 MV E max panchito: 108.7 cm/sec TR max panchito: 253.8 cm/sec MV A max panchito: 105.0 cm/sec TR max P.8 mmHg MV E/A: 1.0 PA V2 max: 110.3 cm/sec Med Peak E' Panchito: 5.9 cm/sec PA V2 mean: 79.7 cm/sec E/E' med: 18.5 PA mean P.8 mmHg Lat Peak E' Panchito: 4.7 cm/sec PA pr(Accel): 10.5 mmHg E/E' lat: 23.1 E/e' average: 20.8 MV dec time: 0.25 sec SV(LVOT): 142.0 ml Electronically signed by: Chandu Carnes M.D. on [place] Physician:08/27/2021 01:59 PM
--- NOTE | 2021-08-26 | DI.US.S_ITS ---
PROCEDURE: US RENAL COMPLETE INDICATIONS: Nonrheumatic aortic (valve) insufficiency TECHNIQUE: Real-time scanning was performed of the kidneys and bladder, with image documentation. COMPARISON: None. FINDINGS: Kidneys: Kidneys are normal in size. Right kidney measures 12.1 cm long; left kidney measures 12.3 cm long. Right renal cortical thickness is 1.1 cm; left renal cortical thickness is 1 cm. Renal cortical echotexture is normal. No hydronephrosis or nephrolithiasis. No suspicious solid mass lesions. Bladder: Urinary bladder is not visualized due to patient's body habitus and overlying bowel gas. Miscellaneous: No free pelvic fluid. IMPRESSION: No gross abnormality is seen in bilateral kidneys. Urinary bladder is not visualized on this study. Dictated by: Matthew Dailey M.D. on 08/26/2021 at 16:40 Approved by: Matthew Dailey M.D. on 08/26/2021 at 16:45
== END ==
PROVIDERS: Family Provider Family Medicine; PCP Family Medicine; Referring Provider Internal Medicine; Visit Provider Internal Medicine
DX: I08.3 Combined rheumatic disorders of mitral, aortic and tricuspid valves (principal); N18.30 Chronic kidney disease, stage 3 unspecified
CPT/HCPCS: 76770; 93306

== ENCOUNTER → 2022-01-11 09:43 | Outpatient (CLI) | payer MEDICARE, MEDICAID, SELFPAY ==
[2022-01-11 11:16] LABS: BUN Creatinine Ratio 12.7 (6-22); Blood Urea Nitrogen 20 mg/dL (7-17); Calcium 9.4 mg/dL (8.4-10.2); Carbon Dioxide 27 mmol/L (22-32); Chloride 105 mmol/L (98-107); Estimated Glomerular Filt Rate 37 mL/min (>60); Glucose 96 mg/dL (80-110); HEMOLYSIS < 15 (0-50); Potassium 4.5 mmol/L (3.4-5.1); Sodium 139 mmol/L (137-145)
[2022-01-12 09:55] LABS: Appearance Urine UA CLEAR; Bilirubin Urine UA NEGATIVE (NEGATIVE); Color Urine UA YELLOW; Glucose Urine UA TRACE g/dL (Negative); Ketones Urine UA TRACE (NEGATIVE); Leukocyte Esterase Urine UA TRACE (NEGATIVE); Nitrite Urine UA NEGATIVE (Negative); Occult Blood Urine UA NEGATIVE (Negative); Protein Urine UA NEGATIVE (Negative); Specific Gravity Urine UA 1.025 (1.000-1.035); Urobilinogen Urine UA 0.2 E.U./dL (0.2)
[2022-01-12 10:01] LABS: pH Urine UA 5.5 (4.5-8.0)
[2022-01-12 10:39] LABS: Bacteria Urine Few (2-10); RBC Urine 0-1/HPF (0-5/HPF); Squamous Epithelial Cell Urine 1-5 /HPF (0-5/HPF); WBC Urine 0-1/HPF (0-5/HPF)
[2022-01-12 10:40] LABS: Culture Indicated Urine Specimen Cultured
[2022-01-12 12:30] LABS: Calcium Oxalate Crystals Urine Few
[2022-01-13 06:00] LABS: Parathyroid Hormone Int 107 pg/mL (15-65)
== END ==
PROVIDERS: Family Provider Family Medicine; PCP Nurse Practitioner; Referring Provider Internal Medicine Nephrology; Visit Provider Internal Medicine Nephrology
DX: N18.30 Chronic kidney disease, stage 3 unspecified (principal)
CPT/HCPCS: 36415; 80048; 81001; 83970; 87077; 87086; 87186

== ENCOUNTER → 2022-07-13 13:00 | Outpatient (CLI) | payer MEDICARE, MEDICAID, SELFPAY ==
[2022-07-13 13:45] LABS: Add Manual Diff / Slide Review NO; Basophils Absolute Auto 0 /uL (0-100); Basophils Percent Auto 0.3 % (0-2); Eosinophils Absolute Auto 300 /uL (0-450); Eosinophils Percent Auto 3.9 % (2-4); Hematocrit 34.3 % (36-46); Hemoglobin 11.5 g/dL (12.0-16.0); Lymphocytes Absolute Auto 900 /uL (1100-4500); Lymphocytes Percent Auto 14.1 % (25-40); Mean Corpuscular HGB Conc 33.5 % (30-36); Mean Corpuscular Hemoglobin 27.6 PG (26-34); Mean Corpuscular Volume 82.2 fL (80-100); Monocytes Absolute Auto 400 /uL (0-900); Monocytes Percent Auto 5.4 % (3-14); Neutrophils Absolute Auto 5000 /uL (1500-7000); Neutrophils Percent Auto 76.3 % (50-75); Platelet Count 194 X10^3/uL (150-400); Red Blood Cell Count 4.17 X10^6/uL (4.0-5.2); Red Cell Distribution Width 13.8 % (11.6-14.8); White Blood Cell Count 6.5 X10^3/uL (4.5-11.0)
[2022-07-13 14:22] LABS: Albumin 3.9 g/dL (3.5-5.0); BUN Creatinine Ratio 16.1 (6-22); Blood Urea Nitrogen 26 mg/dL (7-17); Calcium 9.6 mg/dL (8.4-10.2); Carbon Dioxide 27 mmol/L (22-32); Chloride 105 mmol/L (98-107); Estimated Glomerular Filt Rate 36 mL/min (>60); Glucose 91 mg/dL (80-110); HEMOLYSIS < 15 (0-50); Phosphorous 3.7 mg/dL (2.8-4.1); Potassium 4.7 mmol/L (3.4-5.1); Sodium 140 mmol/L (137-145)
[2022-07-13 16:20] LABS: Vitamin D 25 Hydroxy (D3) 55.2 ng/mL (30.0-100.0)
[2022-07-15 10:09] LABS: Parathyroid Hormone Int 151 pg/mL (15-65)
== END ==
PROVIDERS: Family Provider Family Medicine; PCP Family Medicine; Referring Provider Internal Medicine Nephrology; Visit Provider Internal Medicine
DX: N25.81 Secondary hyperparathyroidism of renal origin (principal); N18.30 Chronic kidney disease, stage 3 unspecified; I35.0 Nonrheumatic aortic (valve) stenosis
CPT/HCPCS: 36415; 80069; 82306; 83970; 85025

== ENCOUNTER 2022-07-17 19:38 | Emergency (ER) | payer MEDICARE, MEDICAID, SELFPAY ==
[2022-07-17] VITALS (45 sets, daily range): BP systolic 79–171; BP diastolic 42–72; PULSE 64–119; RESP 18–30; TEMP 37.1–37.6; O2SAT 61–95
--- NOTE | 2022-07-17 19:44 | DI.RAD.S_ITS ---
PROCEDURE: XR CHEST 1V INDICATIONS: chest pain TECHNIQUE: One view of the chest was acquired. COMPARISON: [facility], , CHEST 2 VIEW, 09/17/2014, 9:04. FINDINGS: Surgical changes and devices: Endotracheal tube extends in normal position. Expandable cardiac valve stent in place. Lungs and pleura: Lungs are abnormal, with severe right and moderately severe left pneumonia. No pleural effusions or pneumothorax. Mediastinum: Mediastinal contours appear normal. Heart size is mildly enlarged. Bones and chest wall: No suspicious bony lesions. Overlying soft tissues appear unremarkable. IMPRESSION: Severe bilateral pneumonia, right greater than left. Endotracheal tube in normal position. Mild cardiomegaly, cardiac valve stent. Dictated by: Roe Torres M.D. on 07/17/2022 at 20:33 Approved by: Roe Torres M.D. on 07/17/2022 at 20:34
[2022-07-17] MEDS: methylPREDNISolone 125 MG/2 ML VIAL IV (19:46)
[2022-07-17] MEDS: KETAMINE 500 MG/5 ML INJ 300 MG IV (19:53)
[2022-07-17] MEDS: SUCCINYLCHOLINE 200 MG/10 ML VIAL 100 MG IV (19:55)
[2022-07-17 19:56] LABS: Add Manual Diff / Slide Review NO; Basophils Absolute Auto 100 /uL (0-100); Basophils Percent Auto 0.4 % (0-2); Eosinophils Absolute Auto 300 /uL (0-450); Eosinophils Percent Auto 2.5 % (2-4); Hematocrit 40.1 % (36-46); Hemoglobin 13.4 g/dL (12.0-16.0); Lymphocytes Absolute Auto 2400 /uL (1100-4500); Lymphocytes Percent Auto 17.4 % (25-40); Mean Corpuscular HGB Conc 33.4 % (30-36); Mean Corpuscular Hemoglobin 27.4 PG (26-34); Mean Corpuscular Volume 82.1 fL (80-100); Monocytes Absolute Auto 700 /uL (0-900); Monocytes Percent Auto 5.2 % (3-14); Neutrophils Absolute Auto 10100 /uL (1500-7000); Neutrophils Percent Auto 74.5 % (50-75); Platelet Count 279 X10^3/uL (150-400); Red Blood Cell Count 4.88 X10^6/uL (4.0-5.2); Red Cell Distribution Width 14.1 % (11.6-14.8); White Blood Cell Count 13.6 X10^3/uL (4.5-11.0)
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
[2022-07-17 20:06] LABS: Alanine Aminotransferase 16 IU/L (<35); Albumin 4.8 g/dL (3.5-5.0); Albumin Globulin Ratio 1.2 (1.0-2.8); Alkaline Phosphatase 112 U/L (38-126); Aspartate Aminotransferase 18 IU/L (14-36); BUN Creatinine Ratio 15.7 (6-22); Bilirubin Total 1.3 mg/dL (0.2-1.3); Blood Urea Nitrogen 24 mg/dL (7-17); Calcium 10.1 mg/dL (8.4-10.2); Carbon Dioxide 24 mmol/L (22-32); Chloride 105 mmol/L (98-107); Creatine Kinase 72 U/L (30-135); Estimated Glomerular Filt Rate 38 mL/min (>60); Globulin 3.9 g/dL (1.7-4.1); Glucose 116 mg/dL (80-110); HEMOLYSIS < 15 (0-50); Lipase 64 U/L (23-300); Potassium 4.5 mmol/L (3.4-5.1); Sodium 142 mmol/L (137-145); Total Protein 8.7 g/dL (6.3-8.2)
[2022-07-17 20:07] LABS: Lactate (Lactic Acid) 2.7 mmol/L (0.7-2.1)
[2022-07-17] MEDS: propofoL 1,000 MG/100 ML VIAL 13.88 MG IV (20:08)
[2022-07-17 20:15] LABS: NT-proBNP (BNP-Adult 18+) 1730 pg/mL (<125)
[2022-07-17] MEDS: FUROSEMIDE 80 MG in SODIUM CHLORIDE 0.9% 50 ML 116 MG IV (20:17)
[2022-07-17] MEDS: fentaNYL 1,000 MCG in DEXTROSE 5% IN WATER 230 ML 26.989 MCG IV (20:26)
--- NOTE | 2022-07-17 20:26 | PM.EVENT ---
Event Note Event Note (Rapid Response, Code, or fall): Consult requested by ERP for acute hypoxemia repsiratory failure management. Patient with significant history of CHF, HTN, and morbid obesity who presents with worsening shortness of breath. On arrival to ER she was emergently intubated. CXR showed bilateral airspace disease with near complete opacification of right lung field and no mediastinal shift. Vent setting -> 18/550/12/100% w/ SpO2 ~70s. Recommend broad spectrum abx (linezolid/zosyn/doxycline) and aggressive diuresis. Sedation need to be titrate to seek RASS goal -3 to -5. Recommend going up on PEEP to 18 and increasing RR to 24. If failed then recommend switching to APRV in hope to achieve the same minute ventilation and to trap at least 50% on end expiratory flow curve. Patient will benefit from proning and inahled flolan for rescue hypoxemia. Given patient's body habitus, she will need to be transfer to tertiary care for aforementioned therapies with rotaprone bed in place. Discussed with ERP.
[2022-07-17] MEDS: MAGNESIUM SULFATE 2 GM/50 ML PIGGYBACK IV (20:46)
[2022-07-17] MEDS: PIPERACILLIN/TAZO 4.5 GM in SODIUM CHLORIDE 0.9% 100 ML IV (20:49)
--- NOTE | 2022-07-17 21:21 | DI.RAD.S_ITS ---
PROCEDURE: XR CHEST 1V INDICATIONS: central line placement TECHNIQUE: One view of the chest was acquired. COMPARISON: [facility], [place], XR CHEST 1V, 07/17/2022, 19:42. [facility], [facility], CHEST 2 VIEW, 09/17/2014, 9:04. FINDINGS: Surgical changes and devices: Right internal jugular central line has been placed with its tip the azygos arch level of the superior vena cava. An esophagogastric tube extends below the imaging margin at least into the gastric cardia. Endotracheal tube remains in normal position. Lungs and pleura: Lungs are worsening in appearance with increased radiodensity throughout the right lung, and with worsening alveolar consolidation at the left lower lung. No pleural effusions or pneumothorax. Mediastinum: Mediastinal contours appear normal. Heart size is normal. Bones and chest wall: No suspicious bony lesions. Overlying soft tissues appear unremarkable. IMPRESSION: No pneumothorax on the right after right-sided central line placement. Worsening pneumonia bilaterally. Lines and tubes in normal position. Dictated by: Roe Torres M.D. on 07/17/2022 at 21:43 Approved by: Roe Torres M.D. on 07/17/2022 at 21:45
[2022-07-17 21:50] LABS: Reflexed Lactate in 2 Hours Y
[2022-07-17 21:59] LABS: Adenovirus Not Detected (Not Detect)
[2022-07-17] MEDS: ALBUTEROL 2.5 MG/3 ML NEB (ADULT) 20 MG INH (21:59)
[2022-07-17 22:00] LABS: B. parapertussis Not Detected (Not Detecte); Bordetella pertussis Not Detected (Not Detecte); Chlamydophila pneumoniae Not Detected (Not Detect); Coronavirus 229E Not Detected (Not Detect); Coronavirus HKU1 Not Detected (Not Detect); Coronavirus NL 63 Not Detected (Not Detect); Coronavirus OC43 Not Detected (Not Detect); Human Metapneumovirus Not Detected (Not Detect); Human Rhinovirus/Enterovirus Not Detected (Not Detect); Influenza A Not Detected (Not Detect); Influenza B Not Detected (Not Detect); Mycoplasma pneumoniae Not Detected (Not Detect); Parainfluenza Virus 1 Not Detected (Not Detect); Parainfluenza Virus 2 Not Detected (Not Detect); Parainfluenza Virus 3 Not Detected (Not Detect); Parainfluenza Virus 4 Not Detected (Not Detect); Respiratory Syncytial Virus Not Detected (Not Detect); SARS- CoV-2 Not Detected (Not Detecte)
[2022-07-17 22:11] LABS: pH ABG 7.19 (7.35-7.45)
[2022-07-17 22:14] LABS: HCO3 ABG 22 mmol/L (23-27); PCO2 ABG 56.3 mmHg (35-45); PO2 ABG 39 mmHg (80-100); TCO2 ABG 23 mmol/L (23-27)
[2022-07-17 22:15] LABS: Oxygen Saturation ABG 60 % (95-100)
[2022-07-17 22:17] LABS: Fractionated Inspired Oxygen 100
[2022-07-17] MEDS: ONDANSETRON 4 MG/2 ML INJ IV (22:17)
[2022-07-17 22:18] LABS: Lactate 2HR (Lactic Acid Rflx) 1.5 mmol/L (0.7-2.1)
[2022-07-17 22:20] LABS: PCO2 ABG 33.1 mmHg (35-45)
[2022-07-17 22:21] LABS: HCO3 ABG 21 mmol/L (23-27); PO2 ABG 56 mmHg (80-100); TCO2 ABG 22 mmol/L (23-27)
[2022-07-17 22:22] LABS: Fractionated Inspired Oxygen 100; Oxygen Saturation ABG 89 % (95-100)
[2022-07-17] MEDS: SODIUM CHLORIDE 0.9% 500 ML 1000 ML IV ×2 (22:27→23:58)
[2022-07-17 22:33] LABS: Procalcitonin 0.06 ng/mL (<0.5)
[2022-07-18] VITALS (10 sets, daily range): BP systolic 129–156; BP diastolic 58–68; PULSE 65–77; RESP 22–34; TEMP 37.5; O2SAT 92–96
[2022-07-18 12:45] LABS: Acinetobacter baumannii Not Detected (Not Detect); Candida albicans Not Detected (Not Detect); Candida glabrata Not Detected (Not Detect); Candida krusei Not Detected (Not Detect); Candida parapsilosis Not Detected (Not Detect); Candida tropicalis Not Detected (Not Detect); E. coli Not Detected (Not Detect); Enterobacter cloacae complex Not Detected (Not Detect); Enterobacteriaceae species Not Detected (Not Detect); Enterococcus species Not Detected (Not Detect); Haemophilus influenzae Not Detected (Not Detect); Listeria monocytogenes Not Detected (Not Detect); Methicillin-resistant gene Not Detected (Not Detect); Neisseria meningitidis Not Detected (Not Detect); Proteus species Not Detected (Not Detect); Pseudomonas aeruginosa Not Detected (Not Detect); Serratia marcescens Not Detected (Not Detect); Staphylococcus species Detected (Not Detect); Streptococcus agalactiae (Gr B Not Detected (Not Detect); Streptococcus pneumonia Not Detected (Not Detect); Streptococcus pyogenes (Gr A) Not Detected (Not Detect); Streptococcus species Not Detected (Not Detect)
== END 2022-07-18 01:02 | disposition short-term general hospital (02) ==
PROVIDERS: Emergency Provider Emergency Medicine; Family Provider Family Medicine; PCP Family Medicine
DX: J96.01 Acute respiratory failure with hypoxia (principal); R00.0 Tachycardia, unspecified; Z95.2 Presence of prosthetic heart valve; Z20.822 Contact with and (suspected) exposure to COVID-19
CPT/HCPCS: 31500; 36415; 36569; 36600; 71045; 80053; 82550; 82805; 83605; 83690; 83735; 83880; 84145; 84484; 85025; 87040; 87150; 87633; 93005; 94640; 96365; 96366; 96368; 96375; 99285; 99291; 99292; J0330; J1940; J2405; J2543; J2704; J2930; J3010; J3475; J7613

== ENCOUNTER 2022-07-28 10:18 | Observation (INO) | payer MEDICARE, MEDICAID, SELFPAY ==
[2022-07-25 09:15] VITALS: PULSE 67; RESP 24; O2SAT 91
[2022-07-28] VITALS (16 sets, daily range): BP systolic 119–152; BP diastolic 35–72; PULSE 66–82; RESP 16–27; TEMP 36–37.1; O2SAT 88–97; BMI 58.3
--- NOTE | 2022-07-28 10:39 | DI.RAD.S_ITS ---
PROCEDURE: XR CHEST 1V INDICATIONS: chest pain TECHNIQUE: One view of the chest was acquired. COMPARISON: [facility], CR, XR CHEST 1V, 07/17/2022, 21:18. FINDINGS: Surgical changes and devices: Cardiac valve stent is noted. Lungs and pleura: Persistent patchy bilateral pulmonary opacities most severe in the right base, overall markedly improved compared to prior exam. Mediastinum: Mediastinal contours appear normal. Heart size is enlarged. Bones and chest wall: No suspicious bony lesions. Overlying soft tissues appear unremarkable. IMPRESSION: Persistent although improved appearance of bilateral pulmonary opacities most suggestive of pneumonia. Dictated by: Maria De Jesus Shukla M.D. on 07/28/2022 at 11:20 Approved by: Maria De Jesus Shukla M.D. on 07/28/2022 at 11:21
[2022-07-28 11:14] LABS: Add Manual Diff / Slide Review NO; Basophils Absolute Auto 0 /uL (0-100); Basophils Percent Auto 0.5 % (0-2); Eosinophils Absolute Auto 200 /uL (0-450); Eosinophils Percent Auto 2.2 % (2-4); Hematocrit 30.1 % (36-46); Lymphocytes Absolute Auto 800 /uL (1100-4500); Lymphocytes Percent Auto 9.4 % (25-40); Mean Corpuscular HGB Conc 33.1 % (30-36); Mean Corpuscular Hemoglobin 27.5 PG (26-34); Mean Corpuscular Volume 82.9 fL (80-100); Monocytes Absolute Auto 700 /uL (0-900); Monocytes Percent Auto 7.7 % (3-14); Neutrophils Absolute Auto 6900 /uL (1500-7000); Neutrophils Percent Auto 80.2 % (50-75); Platelet Count 203 X10^3/uL (150-400); Red Blood Cell Count 3.63 X10^6/uL (4.0-5.2); Red Cell Distribution Width 14.1 % (11.6-14.8); White Blood Cell Count 8.6 X10^3/uL (4.5-11.0)
[2022-07-28 11:25] LABS: Alanine Aminotransferase 34 IU/L (<35); Albumin 3.8 g/dL (3.5-5.0); Albumin Globulin Ratio 1.3 (1.0-2.8); Alkaline Phosphatase 65 U/L (38-126); Aspartate Aminotransferase 22 IU/L (14-36); BUN Creatinine Ratio 14.3 (6-22); Bilirubin Total 1.4 mg/dL (0.2-1.3); Blood Urea Nitrogen 25 mg/dL (7-17); Calcium 9.4 mg/dL (8.4-10.2); Carbon Dioxide 30 mmol/L (22-32); Chloride 104 mmol/L (98-107); Estimated Glomerular Filt Rate 33 mL/min (>60); Globulin 2.9 g/dL (1.7-4.1); Glucose 96 mg/dL (80-110); HEMOLYSIS < 15 (0-50); Lipase 38 U/L (23-300); Potassium 4.8 mmol/L (3.4-5.1); Sodium 139 mmol/L (137-145); Total Protein 6.7 g/dL (6.3-8.2)
--- NOTE | 2022-07-28 11:34 | DI.CT.S_ITS ---
PROCEDURE: CT ANGIO CHEST PE PROTOCOL INDICATIONS: sob/recent intubation/admission TECHNIQUE: After the administration of intravenous contrast, 2 mm thick sections acquired from the pulmonary apices to the posterior costophrenic angles. 3-dimensional maximum intensity projection (MIP) coronal and sagittal reformats were then acquired through the thorax. For radiation dose reduction, the following was used: automated exposure control, adjustment of mA and/or kV according to patient size. COMPARISON: None. FINDINGS: Image quality: Excellent. Lungs and pleura: Patchy airspace opacities in the right lower lobe, right middle lobe, and right upper lobe. No acute air space opacities. Small bilateral pleural effusions. Central and peripheral airways are patent and normal in caliber. Mediastinum: Heart size is normal. TAVR has been performed. The coronary arteries have atherosclerotic calcifications. Trace pericardial effusion. No mediastinal adenopathy by size criteria. Thoracic aorta and central pulmonary arteries are normal in size. Esophagus is normal in caliber. Small hiatal hernia. Bones and chest wall: No suspicious bony lesions. No vertebral body compression fractures. No axillary or supraclavicular adenopathy by size criteria. Thyroid gland is normal. Abdomen: Limited visualization of the upper abdomen shows no acute abnormality. The gallbladder has multiple gallstones. IMPRESSION: 1. Patchy airspace opacities in the right lung consistent with pneumonia. 2. Small bilateral pleural effusions. 3. No pulmonary embolism. 4. The aorta has a normal caliber with no aneurysm or dissection. Dictated by: Nico Muhammad M.D. on 07/28/2022 at 12:12 Approved by: Nico Muhammad M.D. on 07/28/2022 at 12:18
[2022-07-28 11:38] LABS: Troponin I 0.319 ng/mL (0.01-0.034)
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
[2022-07-28 11:53] LABS: INR 1.2 (0.9-1.3); Prothrombin Time 13.2 SECONDS (10.1-12.7)
[2022-07-28 12:36] LABS: Procalcitonin 0.11 ng/mL (<0.5)
[2022-07-28] MEDS: CEFEPIME 2 GM in SODIUM CHLORIDE 0.9% 100 ML IV (13:07)
[2022-07-28] MEDS: VANCOMYCIN 2,000 MG/400 ML PIGGYBACK 200 MG IV (14:14)
[2022-07-28 14:57] LABS: NT-proBNP (BNP-Adult 18+) 5640 pg/mL (<125)
[2022-07-28 15:22] LABS: Lactate (Lactic Acid) 0.6 mmol/L (0.7-2.1)
[2022-07-28] MEDS: FUROSEMIDE 40 MG/4 ML VIAL IV (15:22)
--- NOTE | 2022-07-28 15:23 | PC.NURSE ---
Per MD order vancomycin stopped with only 1g/200ml infused.
--- NOTE | 2022-07-28 15:28 | PC.NURSE ---
1400: Pt ambulated down to the end of the ED and back. By the time she was walking back to the room her SpO2 dropped to 86%. Once sitting down her SpO2 returned to 92% after 30seconds.
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
[2022-07-28 20:52] LABS: COVID19 -Nasal RAPID Negative (Negative)
[2022-07-28] MEDS: ENOXAPARIN 40 MG/0.4 ML SYRINGE SUBCUT (22:10)
[2022-07-28] MEDS: ATORVASTATIN 20 MG TABLET PO (22:10)
[2022-07-28] MEDS: LORazepam 1 MG TABLET PO (22:19)
[2022-07-29 00:46] VITALS: O2SAT 94
[2022-07-29 04:00] VITALS: BP 156/45; PULSE 77; RESP 20; TEMP 35.9; O2SAT 90; O2SAT 94
[2022-07-29 05:40] LABS: Add Manual Diff / Slide Review NO; Basophils Absolute Auto 0 /uL (0-100); Basophils Percent Auto 0.5 % (0-2); Eosinophils Absolute Auto 200 /uL (0-450); Eosinophils Percent Auto 2.7 % (2-4); Hematocrit 29.3 % (36-46); Hemoglobin 9.9 g/dL (12.0-16.0); Lymphocytes Absolute Auto 700 /uL (1100-4500); Lymphocytes Percent Auto 8.9 % (25-40); Mean Corpuscular HGB Conc 33.6 % (30-36); Mean Corpuscular Hemoglobin 27.9 PG (26-34); Mean Corpuscular Volume 82.9 fL (80-100); Monocytes Absolute Auto 600 /uL (0-900); Monocytes Percent Auto 7.3 % (3-14); Neutrophils Absolute Auto 6600 /uL (1500-7000); Neutrophils Percent Auto 80.6 % (50-75); Platelet Count 174 X10^3/uL (150-400); Red Blood Cell Count 3.54 X10^6/uL (4.0-5.2); Red Cell Distribution Width 14.4 % (11.6-14.8); White Blood Cell Count 8.2 X10^3/uL (4.5-11.0)
[2022-07-29 05:46] LABS: BUN Creatinine Ratio 14.9 (6-22); Blood Urea Nitrogen 28 mg/dL (7-17); Calcium 9.1 mg/dL (8.4-10.2); Carbon Dioxide 28 mmol/L (22-32); Chloride 104 mmol/L (98-107); Estimated Glomerular Filt Rate 30 mL/min (>60); Glucose 104 mg/dL (80-110); HEMOLYSIS < 15 (0-50); Magnesium 2.2 mg/dL (1.6-2.3); Potassium 4.1 mmol/L (3.4-5.1); Sodium 139 mmol/L (137-145)
[2022-07-29 07:30] VITALS: O2SAT 95
[2022-07-29 08:00] VITALS: BP 143/47; PULSE 79; RESP 20; O2SAT 96
[2022-07-29] MEDS: AMLODIPINE 5 MG TABLET 10 MG PO (08:45)
[2022-07-29] MEDS: ASPIRIN EC 81 MG TABLET PO (08:45)
[2022-07-29] MEDS: SERTRALINE 50 MG TABLET 200 MG PO (08:45)
[2022-07-29] MEDS: cloNIDine 0.1 MG TABLET 0.3 MG PO ×2 (08:46→15:05)
[2022-07-29] MEDS: ENOXAPARIN 40 MG/0.4 ML SYRINGE SUBCUT (08:46)
[2022-07-29] MEDS: lisinopriL 20 MG TABLET 40 MG PO (08:46)
[2022-07-29] MEDS: ACETAMINOPHEN 325 MG TABLET 650 MG PO (08:47)
[2022-07-29] MEDS: carvediloL 3.125 MG TABLET 6.25 MG PO (09:41)
[2022-07-29] MEDS: LORazepam 1 MG TABLET PO (09:47)
[2022-07-29 11:36] VITALS: O2SAT 94
[2022-07-29 12:00] VITALS: BP 148/43; PULSE 75; RESP 20; TEMP 35.7; O2SAT 92
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
[2022-07-29] MEDS: TORSEMIDE 10 MG TABLET 40 MG PO (16:05)
--- NOTE | 2022-07-29 19:00 | PC.NURSE ---
Discharge: Pt feels ready to d/c to home. Home O2 has been arranged. Passed safety check with PT and did the stairs prior to leaving several times. Tolerates diet w/out problems, does have much of an appetite. Vds w/out diff. Reviewed d/c packet. Questions answered. Dtr has some concerns about their mom going home, pt has no concerns however. Pt d/c home via auto with family
== END 2022-07-29 17:15 | disposition home or self-care (01) ==
LOC: ED 10:30 → AC 15:50
PROVIDERS: Admitting Provider Internal Medicine; Emergency Provider Emergency Medicine; Family Provider Family Medicine; PCP Family Medicine; Referring Provider Emergency Medicine; Visit Provider Internal Medicine
DX: J96.01 Acute respiratory failure with hypoxia (principal); I12.9 Hypertensive chronic kidney disease with stage 1 through stage 4 chronic kidney disease, or unspecified chronic kidney disease; N18.30 Chronic kidney disease, stage 3 unspecified; J45.909 Unspecified asthma, uncomplicated; E66.9 Obesity, unspecified
CPT/HCPCS: 36415; 71045; 71275; 80048; 80053; 83605; 83690; 83735; 83880; 84145; 84484; 85025; 85610; 87040; 87635; 93005; 94618; 96365; 96367; 96372; 96375; 97161; 99284; C9803; G0378; J0692; J1650; J1940; Q9967

== ENCOUNTER → 2022-08-18 11:19 | Outpatient (CLI) | payer MEDICARE, MEDICAID, SELFPAY ==
[2022-07-25 09:15] VITALS: PULSE 67; RESP 24; O2SAT 91
[2022-07-28 20:51] VITALS: BMI 58.3
[2022-08-18 12:12] LABS: Hematocrit 29.3 % (36-46); Hemoglobin 9.8 g/dL (12.0-16.0); Mean Corpuscular HGB Conc 33.6 % (30-36); Mean Corpuscular Hemoglobin 28.1 PG (26-34); Mean Corpuscular Volume 83.7 fL (80-100); Platelet Count 200 X10^3/uL (150-400); Red Cell Distribution Width 15.3 % (11.6-14.8); White Blood Cell Count 6.1 X10^3/uL (4.5-11.0)
[2022-08-18 12:30] LABS: Alanine Aminotransferase 14 IU/L (<35); Albumin 4.1 g/dL (3.5-5.0); Albumin Globulin Ratio 1.4 (1.0-2.8); Alkaline Phosphatase 68 U/L (38-126); Aspartate Aminotransferase 16 IU/L (14-36); BUN Creatinine Ratio 18.4 (6-22); Bilirubin Total 1.2 mg/dL (0.2-1.3); Blood Urea Nitrogen 32 mg/dL (7-17); Calcium 9.9 mg/dL (8.4-10.2); Carbon Dioxide 28 mmol/L (22-32); Chloride 104 mmol/L (98-107); Estimated Glomerular Filt Rate 33 mL/min (>60); Glucose 97 mg/dL (80-110); HEMOLYSIS < 15 (0-50); Potassium 4.5 mmol/L (3.4-5.1); Sodium 140 mmol/L (137-145); Total Protein 7.1 g/dL (6.3-8.2)
== END ==
PROVIDERS: Family Provider Family Medicine; PCP Family Medicine; Referring Provider Nurse Practitioner Family; Visit Provider Nurse Practitioner Family
DX: I50.9 Heart failure, unspecified (principal); J44.9 Chronic obstructive pulmonary disease, unspecified; N18.31 Chronic kidney disease, stage 3a
CPT/HCPCS: 36415; 80053; 85027

== ENCOUNTER → 2022-09-19 11:43 | Outpatient (CLI) | payer MEDICARE, MEDICAID, SELFPAY ==
[2022-07-25 09:15] VITALS: PULSE 67; RESP 24; O2SAT 91
[2022-07-28 20:51] VITALS: BMI 58.3
[2022-09-19 12:40] LABS: BUN Creatinine Ratio 16.1 (6-22); Blood Urea Nitrogen 32 mg/dL (7-17); Calcium 9.6 mg/dL (8.4-10.2); Carbon Dioxide 30 mmol/L (22-32); Chloride 102 mmol/L (98-107); Estimated Glomerular Filt Rate 28 mL/min (>60); Glucose 97 mg/dL (80-110); HEMOLYSIS < 15 (0-50); Potassium 4.6 mmol/L (3.4-5.1); Sodium 139 mmol/L (137-145)
== END ==
PROVIDERS: Family Provider Family Medicine; PCP Family Medicine; Referring Provider Internal Medicine; Visit Provider Internal Medicine
DX: I35.0 Nonrheumatic aortic (valve) stenosis (principal)
CPT/HCPCS: 36415; 80048

== ENCOUNTER 2022-10-03 09:25 | Emergency (ER) | payer MEDICARE, MEDICAID, SELFPAY ==
[2022-07-25 09:15] VITALS: PULSE 67; RESP 24; O2SAT 91
[2022-07-28 20:51] VITALS: BMI 58.3
--- NOTE | 2022-10-03 09:46 | RT ---
Pt arrived to ER by medics with CPR in progress. Pt was intubated with a 6.5 ETT by medics. Medics arrived with pt @ 922 and CPR continued as well as resuce breathing and CO2 monitoring until 937 when called time of .
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
--- NOTE | 2022-10-03 10:17 | PC.NURSE ---
0904: Received EMS call of pt in arriving in 5 min upgraded to a CPR in progress after respiratory failure. Pt intubated in the field. cardiac epi x 3 given in field. Glucose 222 23: Arrived to ER--CPR in progress. Pt arrives intubated with assisted ventilations. IO in R tibia and 20G PIV in L FA. 25: Rhythm check--PEA. Compressions continued 925: 1mg epi given IVP. compressions continued 928: Rhythm check. PEA. Minmal cardiac activity on ultrasound by Dr Hamilton. Compressions continued. Family in route. 30: 1mg epi given IVP. compressions continued. 33: Rhythm check. no pulse. PEA on monitor. No perfusing rhythm on Ultrasound. Compressions continued. 36: Compressions continued. Son Quan in room. Dr Hamilton speaking with son regarding discontinuing CPR. 38: Time of called--937. *Daughter Maite(legal name) also goes by Will, aware and advised that [facility] to be used. [phone]
--- NOTE | 2022-10-03 11:26 | PC.NURSE ---
EET tube, PIV and IO removed by RN and RT per home. Copy of Dispositions of remains release form and face sheet sent with [facility], family updated.
== END 2022-10-03 11:38 | disposition expired ==
PROVIDERS: Emergency Provider Emergency Medicine; Family Provider Family Medicine; PCP Family Medicine
DX: J96.90 Respiratory failure, unspecified, unspecified whether with hypoxia or hypercapnia (principal)
CPT/HCPCS: 92950; 99283; 99284; J0171